=== PATIENT | female | born 2005 | race Caucasian/White ===

== ENCOUNTER 2024-02-08 08:04 | Emergency (ER) | payer BC, SELFPAY ==
[2024-02-08 08:15] VITALS: BP 108/76
[2024-02-08 09:16] VITALS: BP 116/79; BMI 18.1
[2024-02-08 09:50] LABS: % Basophils 0.6 % (0-2); % Eosinophils 0.6 % (0-6); % Immature Granulocytes 0.5 % (0-0.5); % Lymphocytes 21.7 % (20.5-51.1); % Monocytes 7.7 % (1.7-9.3); % Neutrophils 68.9 % (42.2-75.2); Absolute Basophils 0.1 10^3/uL (0-0.2); Absolute Eosinophils 0.1 10^3/uL (0-0.7); Absolute Lymphocytes 1.9 10^3/uL (1.2-3.4); Absolute Monocytes 0.7 10^3/uL (0.1-0.6); Absolute Neutrophils 5.9 10^3/uL (1.4-6.5); Hemoglobin 13.8 g/dL (12.0-16.0); Mean Corp Hgb Conc. 33.7 g/dL (33.0-37.0); Mean Corpuscular Hgb 31.2 pg (27.0-31.0); Mean Corpuscular Volume 92.6 fL (81.0-99.0); Mean Platelet Volume 8.7 fL (7.4-10.4); Nucleated Red Blood Cells % 0 %; Platelet Count 217 10^3/uL (130-400); Red Blood Cell Count 4.43 10^6/uL (4.20-5.40); Red Cell Dist. Width 12.5 % (11.5-14.5); White Blood Cell Count 8.6 10^3/uL (4.8-10.8)
[2024-02-08 10:00] VITALS: BP 97/67
[2024-02-08 10:06] LABS: D-Dimer 0.34 ug/mlFEU (0.00-0.50)
[2024-02-08 10:11] LABS: ALT (SGPT) 17 U/L (0-35); AST (SGOT) 26 U/L (14-36); Albumin 4.8 g/dl (3.5-5.0); Alkaline Phosphatase 87 U/L (38-126); Blood Urea Nitrogen 16 mg/dl (7-17); Calcium 9.6 mg/dl (8.4-10.2); Carbon Dioxide 24 mmol/L (22-30); Chloride 107 mmol/L (98-107); Estimated Creatinine Clearance 120 ml/min; Glucose 85 mg/dl (70-99); Potassium 4.6 mmol/L (3.5-5.1); Sodium 136 mmol/L (135-145); Total Bilirubin 0.6 mg/dl (0.2-1.3); Total Protein 7.6 g/dl (6.3-8.2); eGFR > 60.00
[2024-02-08 10:12] LABS: HCG, Serum Qualitative Screen Negative
[2024-02-08 10:23] LABS: Troponin I < 0.012 ng/ml
--- NOTE | 2024-02-08 10:47 | ED.GENMED ---
History of Present Illness
General
Chief Complaint: Chest Pain
Source: patient and family (Mother)
Exam Limitations: none
Time Seen by Provider: 02/08/24 08:53
Nursing documentation reviewed up to this point in time: agreed with
Travel History
Have you had any contact with someone who has COVID-19?: No
Do you have any symptoms of coronavirus? Fever > 100 degrees, chills, cough, shortness of breath, sore throat, loss of taste or smell, muscle aches, or headache?: No
History of Present Illness
History of Present Illness:
18-year-old female with no reported chronic medical issues presents to the emergency department with her mother for evaluation of intermittent chest pain and palpitations. Patient reports that she has noticed the symptoms more over the past month
although she thinks she has had them from time to time for much longer than that. She describes a sharp pain in the center to the left chest. She says that it last for more than 10 minutes at a time and generally fades without any intervention.
There is no clear trigger for it�she says that there is no exertional component, is not clearly worse when lying flat although she does seem to notice it somewhat more before bedtime. She says that she will get it maybe once or twice a week.
Symptoms are mild. She says that she will sometimes have some associated palpitations. She denies any dizziness or loss of consciousness. She does not have any shortness of breath associated with this. She has not had any abdominal pain, nausea,
vomiting with it. She has not had any swelling or pain in her legs. She says that she did not think very much of her symptoms but mention to her mother who brought her in to be assessed�mother was concerned because patient is supposed to go for a
vacation on Saturday and wanted patient assessed prior to going. There is no family history of early cardiac reported.
Review of Systems
Review of Systems
All Other Systems: ROS reviewed and negative except as documented in HPI and ROS
Constitutional: Denies fever or chills
EENT: Denies sore throat or runny nose
Respiratory: Denies cough or trouble breathing
Cardiac: Reports chest pain and palpitations; Denies diaphoresis or syncope
ABD/GI: Denies abdominal pain, nausea, vomiting or diarrhea
: Denies dysuria, frequency or flank pain
Musculoskeletal: Denies neck pain or back pain
Neurological: Denies dizzy, headache, weakness or numbness
Phy Exam
Physical Exam
Physical Exam:
General: Awake, alert, oriented x3; no acute distress
Head: Normocephalic, atraumatic
Eyes: Conjunctiva normal, sclera anicteric
Throat: Airway intact, handling secretions
Neck: Trachea midline, supple without meningismus
Lungs: Clear to auscultation bilaterally, no wheezing, rales, rhonchi
Heart: Regular rate and rhythm, no murmurs, gallops, or rubs
Abd: Soft, non distended, nontender
Neuro: Cranial nerves grossly intact, speech fluid
Skin: no rash
Extremities: No edema in extremities, equal pulses in all extremities
Scores
Heart Score for Chest Pain Patients
STEMI patient?: No
History: Slightly or Non-Suspicious
ECG: Normal
Age: </= 45 years
Risk Factors: No Risk Factors
Troponin: </= Normal Limit
Heart Score for Chest Pain Patients: 0
Heart Score Risk: 2.5% MACE over next 6 weeks
PE Wells Score
Symptoms of DVT: No
No alternative diagnosis better explains the illness: No
Tachycardia with pulse > 100: No
Immobilization (>=3 days) or surgery within previous 4 weeks: No
Prior history of DVT or pulmonary embolism: No
Presence of hemoptysis: No
Presence of malignancy: No
Pulmonary Embolism Risk Score: 0
Probability of PE: Pt is low risk
Course
Orders/Labs/Results
Orders:
Orders
02/08/24 08:20
Electrocardiogram (*1) Urgent
Reason for Study: Chest Pain
EKG- Treatment ONCE
02/08/24 09:29
CMP [Comprehensive Metabolic Panel] Urgent
Complete Blood Count/With Diff Urgent
Troponin I Urgent
02/08/24 09:36
Test Result ONCE
CR Chest - 2 Views Urgent
Comment:
Reason For Exam: cp
02/08/24 09:44
D-Dimer Urgent
HCG, Serum Qualitative Screen Urgent
Abnormal Lab Results
02/08/24
09:29
MCH 31.2 H pg
(27.0-31.0)
Absolute Monos (auto) 0.7 H 10^3/uL
(0.1-0.6)
02/08/24 09:29
02/08/24 09:29
Vital Signs
Initial and Last Documented VS:
Initial Vital Signs
Temp Pulse Resp BP Pulse Ox
36.8 C 86 18 108/76 100
02/08/24 08:15 02/08/24 08:15 02/08/24 08:15 02/08/24 08:15 02/08/24 08:15
Last Documented Vital Signs
Temp Pulse Resp BP Pulse Ox
36.8 C 77 13 116/79 100
02/08/24 08:15 02/08/24 09:16 02/08/24 09:16 02/08/24 09:16 02/08/24 08:15
MDM/Problems Addressed
Differential Diagnosis Includes:
Pericarditis/myocarditis, pleurisy, precordial catch, pneumothorax, pneumonia, costochondritis, GERD, anxiety; ACS, PE considered much less likely
MDM/Problems Addressed:
18-year-old female presents for evaluation of atypical, nonexertional, intermittent mild chest pain for at least the past month but she thinks probably for a bit longer. Occasionally will have some associated palpitations. Asymptomatic here.
Vital signs are normal here. Exam is benign. EKG shows a sinus rhythm with no ischemia. Will to place an IV check labs including a CBC and a CMP, troponin, D-dimer. Will check an hCG. Will check a chest x-ray. Will monitor on telemetry.
Reassess after the above.
Labs reviewed CBC and CMP are unremarkable. Troponin is undetectable. D-dimer is negative. Chest x-ray reviewed by me shows no pneumonia or pneumothorax. Patient remains well-appearing with reassuring vital signs. Low suspicion for emergent
pathology at this point based on clinical history and exam with negative workup as above. This could be some pleurisy or costochondritis, GERD also consideration. Advised to follow-up with her primary doctor for further workup as outpatient; was
also given cardiology referral given palpitations. I think she is stable for discharge at this point in time. Spoke about return precautions all questions answered.
*Radiology
Radiology exam reviewed: preliminary read by ED provider and radiology read reviewed
*Pulse Oximetry
Patient hypoxic: no
*EKG
Interpreted by ED Provider?: Yes
Heart Rate: 77
Rate: normal
Rhythm: sinus
Butler: right axis deviation
Interval: normal interval
QRS Pattern: normal QRS
Ischemia: no ischemia
*Critical Care Note
Total Time (30-74mins, 75-104mins- exclusive of procedures): Not Applicable
Data Reviewed
Source: patient and family (mother)
ED Attending Note
-
Portions of this chart may have been created with voice recognition software.� Occasional wrong word or��sound alike� substitutions may have occurred due to the inherent limitations of voice recognition software.
Discharge Plan
Departure
Patient with high blood pressure during this ER visit?: No
Discharge Problem:
Chest pain, Palpitations
Instructions: Chest Pain PCP Follow Up
Prescriptions:
No Action
No Current Medications
0
Referrals:
Trini Maxwell MD [Active] - Call in 1-3 days for appt
Angelica Guzman CRNP [Family Provider] - Call in 1-3 days for appt
Activity Restrictions/Additional Instructions:
Thank you for visiting the Emergency Department at [facility].
1. Please schedule a follow up appointment as directed. Call first thing tomorrow morning to make an appointment.
2. If indicated, please take your medications as instructed and indicated on discharge paperwork.
3. If any of your symptoms do not improve, or persist, or become more severe within 6-12 hours, please return to the emergency department for further care.
4. Please return to the emergency department if you develop a headache, neck pain/stiffness, fever greater than 100.4F, chest pain, shortness of breath, persistent nausea, vomiting, slurred speech, difficulty walking, numbness/tingling, weakness,
signs of infection or any other symptoms that are worrisome to you.
Please call [phone] if you have any questions.
Interventions
Interventions:
*Risk Screen - Suicide Last Done: 02/08/24 09:19
*General Assessment Last Done: 02/08/24 09:18
*Neglect/Abuse Screening Last Done: 02/08/24 09:19
ED- Fall Risk Assessment Last Done: 02/08/24 09:17
*ED COVID-19 Vaccine History Last Done: 02/08/24 09:19
ED- Cardiac Assessment Last Done: 02/08/24 09:17
[2024-02-08 10:59] VITALS: BP 113/73
== END 2024-02-08 11:24 | disposition home or self-care (01) ==
LOC: EMR 08:04
PROVIDERS: EMERGENCY PHYSICIAN Emergency Medicine; FAMILY PHYSICIAN Nurse Practitioner Family
DX: R00.2 Palpitations (principal); R07.9 Chest pain, unspecified
CPT/HCPCS: 99285; 71046; 80053; 84484; 84703; 85025; 85379; 93005